=== PATIENT | female | born 1995 | race Caucasian/White ===

== ENCOUNTER 2018-09-11 13:51 | Emergency (ER) | payer OTHER ==
--- NOTE | 2018-09-11 13:59 | ER Report ---
History and Physical Time Seen By MD: 13:59 HPI/ROS CHIEF COMPLAINT: Shortness breath and chest pain HISTORY OF PRESENT ILLNESS: This is a 22-year-old female who presents to the emergency department for shortness breath and chest pain. Patient was sent to the emergency department from urgent care for concerns of a pulmonary embolus. Patient states that since June she's had shortness of breath, feels as though it's getting worse, more so over the last several days, today she had increased shortness of breath, chest pain felt her heart was racing with to urgent care, they noted sinus tachycardia on EKG surgical recent after the ER for evaluation. Patient arrives tearful, hyperventilating, states she has intermittent chest pain, heart rate on the bedside monitor is 145-154. She states her last couple days she's had aches and chills, some fevers 2. No rashes, no meningismus. REVIEW OF SYSTEMS: Constitutional: As above. Eyes: No discharge. ENT: No sore throat. Cardiovascular: As above. Respiratory: As above. Gastrointestinal: No abdominal pain, no vomiting. Genitourinary: No hematuria. Musculoskeletal: No back pain. Skin: No rashes. Neurological: No headache. Allergies: Coded Allergies: No Known Drug Allergies (Unverified , 09/11/18) Home Meds Active Scripts Amoxicillin/Pot Clav 875-125 Mg Tab (AUGMENTIN 875-125 TABLET) 1 Each Tablet, 1 TAB PO Q12H for 10 Days, #20 TAB 0 Refills Prov:ROC RAO SEASONAL DELIVERY DRIVER-BC 09/11/18 Reported Medications Cephalexin (KEFLEX) 250 Mg Capsule, 500 MG PO Q12H, #28 CAP 09/11/18 Levonorgestrel-Eth Estradiol (JOLESSA) 1 Each Tbdspk.3mo, 1 EACH PO 09/11/18 Past Medical/Surgical History The patient has a past medical and surgical history of celiac disease, turbinate ectomy, tonsillectomy. Reviewed Nurses Notes: Yes Constitutional Vital Sign - Last 24 Hours 09/11/18 09/11/18 09/11/18 09/11/18 13:56 14:00 14:06 14:20 Temp 98.4 Pulse 147 Resp 28 B/P (MAP) 143/110 (121) 143/110 139/101 (114) Pulse Ox 94 O2 Delivery Room Air O2 Flow Rate 2.0 09/11/18 09/11/18 09/11/18 09/11/18 14:21 14:30 14:51 15:21 Pulse 140 123 Resp 25 23 13 B/P (MAP) 137/91 (106) Pulse Ox 96 97 99 09/11/18 09/11/18 09/11/18 09/11/18 15:30 15:35 16:00 16:05 Pulse 127 117 Resp 24 15 B/P (MAP) 148/91 (110) 158/88 (111) Pulse Ox 98 96 09/11/18 09/11/18 09/11/18 09/11/18 16:10 16:40 17:00 17:05 Pulse 116 114 111 Resp 11 26 B/P (MAP) 137/78 (97) Pulse Ox 96 98 09/11/18 09/11/18 17:30 17:35 Pulse 123 Resp 21 B/P (MAP) 117/94 (102) Pulse Ox 97 Physical Exam General Appearance: The patient is alert, has no immediate need for airway protection and no signs of toxicity, tearful and anxious. Eyes: Pupils equal and round no pallor or injection. ENT, Mouth: Mucous membranes are moist. Respiratory: There are no retractions, lungs are clear to auscultation. Cardiovascular: Regular rate and rhythm, no murmurs, clicks or rubs. Gastrointestinal: Abdomen is soft and non tender, no masses, bowel sounds normal. Neurological: Alert and oriented 4. Moving all extremities. Following all commands. No focal neuro deficits. Skin: Warm and dry, no rashes. Musculoskeletal: Neck is supple non tender. Extremities are nontender, nonswollen and have full range of motion. DIFFERENTIAL DIAGNOSIS: After history and physical exam differential diagnosis was considered for chest pain including but not limited to myocardial ischemia, pericarditis pulmonary embolus, chest wall pain, pleural inflammation and pulmonary infectious causes. Medical Decision Making Data Points Result Diagram: 09/11/18 1400 09/11/18 1400 Laboratory Hematology Test 09/11/18 14:00 09/11/18 14:27 09/11/18 16:03 Red Blood Count 4.62 M/uL (4.17-5.56) Mean Corpuscular Volume 92.2 fL (80.0-96.0) Mean Corpuscular Hemoglobin 32.0 pg (26.0-33.0) Mean Corpuscular Hemoglobin Concent 34.8 g/dL (32.0-36.0) Red Cell Distribution Width 13.2 % (11.5-14.5) Mean Platelet Volume 7.3 fL (7.2-11.1) Neutrophils (%) (Auto) 84.8 % (39.4-72.5) Lymphocytes (%) (Auto) 5.4 % (17.6-49.6) Monocytes (%) (Auto) 8.6 % (4.1-12.4) Eosinophils (%) (Auto) 0.8 % (0.4-6.7) Basophils (%) (Auto) 0.4 % (0.3-1.4) Nucleated RBC Relative Count (auto) 0.0 /100WBC Neutrophils # (Auto) 16.4 K/uL (2.0-7.4) Lymphocytes # (Auto) 1.0 K/uL (1.3-3.6) Monocytes # (Auto) 1.7 K/uL (0.3-1.0) Eosinophils # (Auto) 0.2 K/uL (0.0-0.5) Basophils # (Auto) 0.1 K/uL (0.0-0.1) Nucleated RBC Absolute Count (auto) 0.00 K/uL Sodium Level 141 mmol/L (137-145) Potassium Level 3.7 mmol/L (3.5-5.0) Chloride Level 109 mmol/L (98-107) Carbon Dioxide Level 20 mmol/L (22-31) Blood Urea Nitrogen 8 mg/dl (7-18) Creatinine 0.60 mg/dl (0.52-1.04) Glomerular Filtration Rate Calc > 60.0 Random Glucose 106 mg/dl (75-110) Calcium Level 9.4 mg/dl (8.4-10.2) Total Bilirubin 0.5 mg/dl (0.2-1.3) Aspartate Amino Transf (AST/SGOT) 27 U/L (0-35) Alanine Aminotransferase (ALT/SGPT) 28 U/L (0-56) Alkaline Phosphatase 55 U/L (0-126) Troponin I < 0.012 ng/ml Total Protein 7.8 g/dl (6.3-8.2) Albumin 4.6 g/dl (3.5-5.0) Urine Color Yellow Urine Clarity Cloudy Urine pH 7.0 pH (4.8-9.5) Urine Specific [place] 1.004 Urine Protein Negative mg/dL (NEGATIVE) Urine Glucose (UA) Negative mg/dL (NEGATIVE) Urine Ketones Negative mg/dL (NEGATIVE) Urine Blood Moderate (NEGATIVE) Urine Nitrite Negative (NEGATIVE) Urine Bilirubin Negative (NEGATIVE) Urine Urobilinogen Negative mg/dL (0.2-1.9) Urine Leukocyte Esterase Large (NEGATIVE) Urine RBC 45 /HPF (0-2/HPF) Urine WBC 89 /HPF (0-5/HPF) Urine WBC Clumps Few /HPF Urine Squamous Epithelial Cells Many /LPF (</=FEW) Urine Bacteria Few /HPF (NONE-FEW) Urine Mucus None /HPF (NONE-FEW) Influenza Virus Type A (PCR) Negative (NEGATIVE) Influenza Virus Type B (PCR) Negative (NEGATIVE) Chemistry Test 09/11/18 14:00 09/11/18 14:27 09/11/18 16:03 White Blood Count 19.3 k/uL (4.5-11.0) Red Blood Count 4.62 M/uL (4.17-5.56) Hemoglobin 14.8 g/dL (12.0-16.0) Hematocrit 42.6 % (34.0-47.0) Mean Corpuscular Volume 92.2 fL (80.0-96.0) Mean Corpuscular Hemoglobin 32.0 pg (26.0-33.0) Mean Corpuscular Hemoglobin Concent 34.8 g/dL (32.0-36.0) Red Cell Distribution Width 13.2 % (11.5-14.5) Platelet Count 305 K/uL (150-450) Mean Platelet Volume 7.3 fL (7.2-11.1) Neutrophils (%) (Auto) 84.8 % (39.4-72.5) Lymphocytes (%) (Auto) 5.4 % (17.6-49.6) Monocytes (%) (Auto) 8.6 % (4.1-12.4) Eosinophils (%) (Auto) 0.8 % (0.4-6.7) Basophils (%) (Auto) 0.4 % (0.3-1.4) Nucleated RBC Relative Count (auto) 0.0 /100WBC Neutrophils # (Auto) 16.4 K/uL (2.0-7.4) Lymphocytes # (Auto) 1.0 K/uL (1.3-3.6) Monocytes # (Auto) 1.7 K/uL (0.3-1.0) Eosinophils # (Auto) 0.2 K/uL (0.0-0.5) Basophils # (Auto) 0.1 K/uL (0.0-0.1) Nucleated RBC Absolute Count (auto) 0.00 K/uL Glomerular Filtration Rate Calc > 60.0 Calcium Level 9.4 mg/dl (8.4-10.2) Total Bilirubin 0.5 mg/dl (0.2-1.3) Aspartate Amino Transf (AST/SGOT) 27 U/L (0-35) Alanine Aminotransferase (ALT/SGPT) 28 U/L (0-56) Alkaline Phosphatase 55 U/L (0-126) Troponin I < 0.012 ng/ml Total Protein 7.8 g/dl (6.3-8.2) Albumin 4.6 g/dl (3.5-5.0) Urine Color Yellow Urine Clarity Cloudy Urine pH 7.0 pH (4.8-9.5) Urine Specific [place] 1.004 Urine Protein Negative mg/dL (NEGATIVE) Urine Glucose (UA) Negative mg/dL (NEGATIVE) Urine Ketones Negative mg/dL (NEGATIVE) Urine Blood Moderate (NEGATIVE) Urine Nitrite Negative (NEGATIVE) Urine Bilirubin Negative (NEGATIVE) Urine Urobilinogen Negative mg/dL (0.2-1.9) Urine Leukocyte Esterase Large (NEGATIVE) Urine RBC 45 /HPF (0-2/HPF) Urine WBC 89 /HPF (0-5/HPF) Urine WBC Clumps Few /HPF Urine Squamous Epithelial Cells Many /LPF (</=FEW) Urine Bacteria Few /HPF (NONE-FEW) Urine Mucus None /HPF (NONE-FEW) Influenza Virus Type A (PCR) Negative (NEGATIVE) Influenza Virus Type B (PCR) Negative (NEGATIVE) Urinalysis Test 09/11/18 14:27 Urine Color Yellow Urine Clarity Cloudy Urine pH 7.0 pH (4.8-9.5) Urine Specific [place] 1.004 Urine Protein Negative mg/dL (NEGATIVE) Urine Glucose (UA) Negative mg/dL (NEGATIVE) Urine Ketones Negative mg/dL (NEGATIVE) Urine Blood Moderate (NEGATIVE) Urine Nitrite Negative (NEGATIVE) Urine Bilirubin Negative (NEGATIVE) Urine Urobilinogen Negative mg/dL (0.2-1.9) Urine Leukocyte Esterase Large (NEGATIVE) Urine RBC 45 /HPF (0-2/HPF) Urine WBC 89 /HPF (0-5/HPF) Urine WBC Clumps Few /HPF Urine Squamous Epithelial Cells Many /LPF (</=FEW) Urine Bacteria Few /HPF (NONE-FEW) Urine Mucus None /HPF (NONE-FEW) EKG/Imaging EKG Interpretation 12 lead EKG: Time of EKG 1422. Rhythm: Sinus tachycardia, ventricular rate 144 bpm. [place]: normal QRS: normal ST segments: No ST depression or elevation identified. EKGs from urgent care showing mild S1 every 3 T3. Imaging Location: [facility] [place] Patient: Marlene Estrella : 1995 Visit/Account:[id number] [facility] EXAMINATION: CTA of the chest with IV contrast HISTORY: Evaluate for PE. No other history provided. TECHNIQUE: Pulmonary embolus protocol - Thin axial CT images of the chest were obtained with IV contrast during maximal pulmonary arterial opacification. R econstruction of the source data includes multiplanar 2D coronal and sagittal reconstructed images, and 3D coronal and sagittal MIP images. Athletic Monitor images have been stored on PACS. One of the following dose optimization techniques was utilized in the performance of this exam: Automated exposure control; adjustment of the mA and/or kV according to the patient's size; or use of an iterative reconstruction technique. Specific details can be referenced in the facility's radiology CT exam operational policy. Contrast: 80 mL of IV Isovue-370. COMPARISON: None. FINDINGS: Pulmonary arteries: The pulmonary arteries are moderately well opacified, without suspicious filling defect to the level of the segmental pulmonary artery branches. Peripheral subsegmental branches are suboptimally opacified due to timing of the contrast bolus. Heart, aorta, and great vessels: Negative. Lungs and pleura: The lungs are clear. No focal consolidation. No pleural effusion or pneumothorax. The central airways are patent. Mediastinum and idania: Negative. Visualized upper abdomen: Unremarkable. Chest wall: Negative. Bones: Negative. IMPRESSION: 1. No evidence of pulmonary embolism. 2. No other acute findings in the chest. The lungs are clear. Report Dictated By: Hugh Aguilar MD at 09/11/2018 3:43 PM Report E-Signed By: Hugh Aguilar MD at 09/11/2018 3:46 PM WSN:[id number] Location: [facility] [place] Patient: Marlene Estrella : 1995 Visit/Account:[id number] Date of Sevice: 09/11/2018 FACIAL BONES: Two views Findings: There is no evidence of fracture, displacement, or other acute skeletal deformity. There is normal mineralization. The paranasal sinuses are clear, as visualized. There is no evidence of soft tissue defect or foreign body. IMPRESSION: Negative study. Report Dictated By: Paco Bro at 09/11/2018 5:27 PM Report E-Signed By: Paco Bro at 09/11/2018 5:28 PM WSN:[id number] ED Course/Re-evaluation Clinical Indication for ER IV: Hydration, IV Access ED Course Patient was admitted to room. A history and physical were obtained. Differential diagnoses were considered. IV was started. A CBC, CMP, troponin were obtained. A 1 L normal saline bolus was given 2.CBC showing white count of 19.3, and with a left shift, negative troponin, chemistry otherwise unremarkable, urine with many urine white blood cells however likely contaminated or I did send it off for a culture negative influenza. On the urgent care EKG they stated that she had S1 every 3 T3, on ERs EKG I'm not appreciating an S1 or Q-wave however there is an inverted T-wave. I did however send the the patient for a CTA which was negative for pulmonary emboli, clear lungs. After her liter of fluid patient's heart rate did improve with rate of 1:15 to 120, after a 2nd liter fluid heart rate down to around 100. Patient had significant pain around her sinuses, however the sinus x-ray was negative, I did however with an elevated white blood cell count and p ain and treat the patient for sinus infection. I did recommend that she follows up with primary care provider for reevaluation. She tripped understanding, had no other questions or concerns at this time and was discharged home. Patient states she had improvement of her lightheadedness, no longer had any chest pain. A prescription for Augmentin was into the patient's pharmacy. Decision to Disposition Date: Sep 11, 2018 Decision to Disposition Time: 17:47 Depart Departure Latest Vital Signs Vital Signs Date Time Temp Pulse Resp B/P (MAP) Pulse Ox O2 Delivery O2 Flow Rate FiO2 09/11/18 17:35 123 21 97 09/11/18 17:30 117/94 (102) 09/11/18 14:06 98.4 Room Air 09/11/18 14:00 2.0 Impression: Primary Impression: Tachycardia Additional Impression: Sinusitis Condition: Improved Disposition: HOME OR SELF-CARE Referrals: [facility] 5 Days New Scripts Amoxicillin/Pot Clav 875-125 Mg Tab (AUGMENTIN 875-125 TABLET) 1 Each Tablet 1 TAB PO Q12H for 10 Days, #20 TAB 0 Refills Prov: ROC RAO-RHIANNON 09/11/18 Patient Instructions: Sinusitis (ED), Supraventricular Tachycardia (GEN) Additional Instructions: No evidence of a blood clot in your lungs. The heart rate of 145, treated with 2 L of fluid, heart rate is nearing 100 now, this could be secondary to a sinus infection which we will treat. I do watch follow-up with [facility] next Saturday or Saturday for reevaluation. If you need to return to the emergency department for any other concerns or worsening symptoms please do so immediately. Please drink plenty of fluids as I think the lack of hydration contribute to your tachycardia. Take ibuprofen and Tylenol as needed for pain. Problem Qualifiers Additional Impression: Sinusitis Sinusitis location: maxillary Chronicity: acute Recurrence: not specified as recurrent Qualified Codes: J01.00 - Acute maxillary sinusitis, unspecified ROC RAO SEASONAL DELIVERY DRIVER-BC Sep 11, 2018 13:59
[2018-09-11] MEDS ORDERED: ONDANSETRON 4 MG/2 ML VIAL IVP ONE (14:05)
[2018-09-11] MEDS ORDERED: NS(*) 0.9% 1000 ML BAG 1,000 ML IV ONE ×2 (14:05→16:25)
[2018-09-11] MEDS ORDERED: LEVO1TBD8 PO (14:14)
[2018-09-11] MEDS ORDERED: CEPH250C37 PO (14:14)
[2018-09-11 14:19] LABS: PLATELET COUNT, AUTOMATED 305 K/uL (150-450)
--- NOTE | 2018-09-11 14:47 | EKG ---
FACILITY: [facility] PATIENT NAME: JOSE EDUARDO SKY : [id number] MR: [id number] V: [id number] EXAM DATE: ORDERING PHYSICIAN: ROC RAO TECHNOLOGIST: GILDARDO Test Reason : CHEST PAIIN, SOB Blood Pressure : / mmHG Vent. Rate : 144 BPM Atrial Rate : 144 BPM P-R Int : 118 ms QRS Dur : 078 ms QT Int : 274 ms P-R-T Axes : 038 036 002 degrees QTc Int : 424 ms Sinus tachycardia Otherwise normal ECG No previous ECGs available Confirmed by Eladio Morales ([id number]) on 09/11/2018 10:19:12 PM Referred By: GREGORY Confirmed By:Eladio Snell
[2018-09-11] MEDS ORDERED: NS(*) 0.9% 50 ML BAG 50 ML ONE (15:03)
--- NOTE | 2018-09-11 15:51 | RADIOLOGY IMAGING REPORT ---
FACILITY: [facility] PATIENT NAME: Marlene Estrella : 1995 MR: [id number] V: [id number] EXAM DATE: ORDERING PHYSICIAN: ROC RAO TECHNOLOGIST: Location: [facility] Patient: Marlene Estrella : 1995 Visit/Account:[id number] Date of Sevice: 09/11/2018 EXAMINATION: CTA of the chest with IV contrast HISTORY: Evaluate for PE. No other history provided. TECHNIQUE: Pulmonary embolus protocol - Thin axial CT images of the chest were obtained with IV con trast during maximal pulmonary arterial opacification. Reconstruction of the source data includes mul tiplanar 2D coronal and sagittal reconstructed images, and 3D coronal and sagittal MIP images. Repres entative images have been stored on PACS. One of the following dose optimization techniques was utilized in the performance of this exam: Autom ated exposure control; adjustment of the mA and/or kV according to the patient's size; or use of an i terative reconstruction technique. Specific details can be referenced in the facility's radiology C T exam operational policy. Contrast: 80 mL of IV Isovue-370. COMPARISON: None. FINDINGS: Pulmonary arteries: The pulmonary arteries are moderately well opacified, without suspicious filling defect to the level of the segmental pulmonary artery branches. Peripheral subsegmental branches are suboptimally opacified due to timing of the contrast bolus. Heart, aorta, and great vessels: Negative. Lungs and pleura: The lungs are clear. No focal consolidation. No pleural effusion or pneumothorax. The central airways are patent. Mediastinum and idania: Negative. Visualized upper abdomen: Unremarkable. Chest wall: Negative. Bones: Negative. IMPRESSION: 1. No evidence of pulmonary embolism. 2. No other acute findings in the chest. The lungs are clear. Report Dictated By: Hugh Aguialr MD at 09/11/2018 3:43 PM Report E-Signed By: Hugh Aguilar MD at 09/11/2018 3:46 PM WSN:[id number]
[2018-09-11 17:30] VITALS: BP 117/94
--- NOTE | 2018-09-11 17:31 | RADIOLOGY IMAGING REPORT ---
FACILITY: [facility] [place] PATIENT NAME: Marlene Estrella : 1995 MR: [id number] V: [id number] EXAM DATE: ORDERING PHYSICIAN: ROC RAO TECHNOLOGIST: Location: [facility] Patient: Marlene Estrella : 1995 Visit/Account:[id number] Date of Sevice: 09/11/2018 FACIAL BONES: Two views Findings: There is no evidence of fracture, displacement, or other acute skeletal deformity. There is normal mineralization. The paranasal sinuses are clear, as visualized. There is no evidence of soft tissue defect or foreign body. IMPRESSION: Negative study. Report Dictated By: Paco Bro at 09/11/2018 5:27 PM Report E-Signed By: Paco Bro at 09/11/2018 5:28 PM WSN:[id number]
[2018-09-11] MEDS ORDERED: AMOX-559 PO (17:49)
== END 2018-09-11 18:10 | disposition home or self-care (01) ==
LOC: ER 14:05
DX: R00.0 Tachycardia, unspecified (principal); J32.9 Chronic sinusitis, unspecified
CPT/HCPCS: 70220; 71275; 81001; 84484; 85025; 87088; 87502; 93005; 96361; 96374; 99284; J2405; J7030; J7050; Q9967; 82040; 82247; 82310; 82374; 82435; 82565; 82947; 84075; 84132; 84155; 84295; 84450; 84460; 84520